=== PATIENT | male | born 1980 | race American Indian/Alaskan Native ===

== ENCOUNTER 2017-01-14 19:13 | Emergency (ER) | payer OTHER ==
[2017-01-14 20:39] LABS: Bacteria,Urine 3+ /HPF (Negative); Bilirubin,Urine NEG (Negative); Blood,Urine SM (Negative); Ketones,Urine NEG (Negative); Leukocyte Esterase,Urine NEG (Negative); Mucus,Urine FEW /HPF; Nitrite,Urine POS (Negative)
--- NOTE | 2017-01-14 21:35 | Emergency Department Report ---
ED Dysuria HPI - HPI Chief Complaint: Urogenital-Female Stated Complaint: POSSIBLE BLADDER INFECTION Time Seen by Provider: 01/14/17 21:12 Duration: 3 Days Location of Discomfort: Urethra (dysuria) Severity: Moderate Symptoms: Dysuria: Yes, Frequency: Yes, Suprapubic Pain: No, Flank Pain: No, Fever: No, Hematuria: No, Abdominal Pain: No, Previous UTI's: No Other History: 36 y.o. male presentw with frequent urination, urgency, pain, discomfort, burning, and chills for 3 days. States he took urotract OTC today with no symptom relief. Denies fever, nausea, vomiting, myalgia, flank pain, blood in urine, and discharge. Is sexually active, use protection. ED Review of Systems ROS: Stated complaint: POSSIBLE BLADDER INFECTION Other details as noted in HPI Constitutional: no symptoms reported, chills. denies: diaphoresis, fever, malaise, weakness Eyes: as per HPI ENT: as per HPI Respiratory: no symptoms reported Cardiovascular: as per HPI Gastrointestinal: as per HPI. denies: abdominal pain, nausea, vomiting, diarrhea, constipation, hematemesis, melena, hematochezia Genitourinary: as per HPI, urgency, dysuria, frequency. denies: hematuria, discharge, testicular pain, testicular mass Skin: as per HPI. denies: rash, lesions, change in color, change in hair/nails , pruritus Neurological: as per HPI. denies: headache, weakness, numbness, paresthesias, confusion, abnormal gait, vertigo Psychiatric: as per HPI. denies: anxiety, depression, auditory hallucinations, visual hallucinations, homicidal thoughts, suicidal thoughts ED Past Medical Hx - Past Medical History Previous Medical History?: No - Surgical History Past Surgical History?: No - Social History Smoking Status: Never Smoker Substance Use Type: None - Medications Home Medications: Home Medications Medication Instructions Recorded Confirmed Last Taken Type Ciprofloxacin HCl [Cipro] 500 mg PO BID 10 Days #20 tablet 01/14/17 Unknown Rx Phenazopyridine [Pyridium] 200 mg PO TID 2 Days #6 tab 01/14/17 Unknown Rx Dysuria Exam - Exam General: Vital signs noted. No distress. Alert and acting appropriately. Exam: Yes Moist Mucous Membranes, No CVA Tenderness, No Abdominal Tenderness, No Rigidity or Guarding Labs: Lab Results 01/14/17 Range/Units 20:20 Urine Color Sammie (Yellow) Urine Turbidity Clear (Clear) Urine pH 5.0 (5.0-7.0) Ur Specific Melba 1.030 (1.003-1.030) Urine Protein 30 mg/dl (Negative) mg/dL Urine Glucose (UA) Neg (Negative) mg/dL Urine Ketones Neg (Negative) mg/dL Urine Blood Sm (Negative) Urine Nitrite Pos (Negative) Urine Bilirubin Neg (Negative) Urine Urobilinogen 4.0 (<2.0) mg/dL Ur Leukocyte Esterase Neg (Negative) Urine WBC (Auto) 7.0 H (0.0-6.0) /HPF Urine RBC (Auto) 27.0 (0.0-6.0) /HPF Urine Bacteria (Auto) 3+ (Negative) /HPF Urine Mucus Few /HPF ED Course Vital Signs 01/14/17 19:38 Temperature 98.6 F Pulse Rate 78 Blood Pressure 134/81 O2 Sat by Pulse 100 Oximetry ED Medical Decision Making - Differential Diagnosis Pyelonephritis, epididymitis Critical care attestation.: If time is entered above; I have spent that time in minutes in the direct care of this critically ill patient, excluding procedure time. ED Disposition Clinical Impression: UTI (urinary tract infection) Qualifiers: Urinary tract infection type: acute cystitis Hematuria presence: with hematuria Qualified Code(s): N30.01 - Acute cystitis with hematuria Disposition: - TO HOME OR SELFCARE Is pt being admited?: No Does the pt Need Aspirin: No Condition: Stable Instructions: Urinary Tract Infection in Men (ED) Additional Instructions: Increase fluid intake. Prescriptions: Ciprofloxacin HCl [Cipro] 500 mg PO BID 10 Days #20 tablet Phenazopyridine [Pyridium] 200 mg PO TID 2 Days #6 tab Referrals: PRIMARY CARE, [Primary Care Provider] - 3-5 Days [facility] [Outside] - 3-[address] [facility] [Outside] - 3-5 Days Forms: Work/School Release Form(ED) Time of Disposition: 21:51 Print Language: AZERI
[2017-01-14 22:11] VITALS: BP 132/84
== END 2017-01-14 22:11 | disposition home or self-care (01) ==
LOC: ED 19:13
DX: N39.0 Urinary tract infection, site not specified (principal)
CPT/HCPCS: 81001; 99283